=== PATIENT | male | born 1950 | race Caucasian/White ===

== ENCOUNTER 2021-07-02 16:58 | Inpatient (IN) | payer MEDICARE ==
[~2021-07-02] VITALS: Ht 182.9 cm; Wt 93.1 kg
[~2021-07-02 16:58] MED LIST: ASPI81TA52 PO; PANT-47 PO
[2021-07-02 18:27] VITALS: BP 143/89
--- NOTE | 2021-07-02 18:31 | NUR ---
pt placed into bed 2011b. placed on bedside monitor. high flow canula was started by rt. report given to Koko
[2021-07-02 19:00] VITALS: BP 119/93
--- NOTE | 2021-07-02 19:13 | NUR ---
Report received. Pt in bed on HFNC 100% 80L, NRBM on top. Pt in Afib HR 130s Andrew made aware.
[2021-07-02] MEDS ORDERED: metoprolol tartrate 1mg/ml inj IV ONE (19:15)
[2021-07-02 19:30] LABS: ABG BASE EXCESS -4.6 mmol/L (-2.0-2.0); ABG HCO3 18.6 mmol/L (22.0-26.0); ABG OXYGEN SATURATION 90.8 % (94-97); ABG PCO2 (T) 30.1 mmHg (35.0-48.0); ABG PO2 (T) 58.3 mmHg (75.0-100.0); ALLEN'S TEST POSITIVE; FCOHb 0.3 % (0.0-3.9); FLOW 60 L/min; FMetHb 0.3 % (0.0-1.5); FO2Hb 90.3 % (94-97)
[2021-07-02 20:00] VITALS: BP 159/80
[2021-07-02] MEDS ORDERED: magnesium hydroxide 30ml (MOM) UD suspension PO PRN (20:15)
[2021-07-02] MEDS ORDERED: acetaminophen 325mg tablet PO PRN ×2 (20:15)
[2021-07-02] MEDS ORDERED: ondansetron/PF 4mg/2ml inj IV PRN (20:15)
[2021-07-02] MEDS ORDERED: ALBUTEROL INHALER 1 PUFF/90 MCG INHALER IH PRN (20:20)
[2021-07-02] MEDS ORDERED: enoxaparin 40mg/0.4ml syringe SUBCUT ONE (20:20)
[2021-07-02] MEDS: normal saline 1000ml 1,000 ML IV SCH (20:22)
--- NOTE | 2021-07-02 20:28 | NUR ---
Kelli [phone] updated.
[2021-07-02 21:00] VITALS: BP 151/92
[2021-07-02 21:03] LABS: D-DIMER 0.49 MG/L FEU (0-0.50)
[2021-07-02 21:36] LABS: C-REACTIVE PROTEIN 4.78 MG/DL (0.0-0.5)
[2021-07-02 22:00] VITALS: BP 122/78
[2021-07-02 23:00] VITALS: BP 146/83
[2021-07-02] MEDS: metoprolol tartrate 1mg/ml inj IV PRN (23:00)
[2021-07-03] VITALS (24 sets, daily range): BP systolic 107–161; BP diastolic 75–110
[2021-07-03] MEDS: dexmedetomidine/D5W 100mL 100 ML IV SCH ×5 (00:42→20:46)
[2021-07-03] MEDS: morphine 2 MG/ML inj. syringe IV PRN (02:29)
[2021-07-03 04:08] LABS: ABG BASE EXCESS -6.6 mmol/L (-2.0-2.0); ABG HCO3 17.1 mmol/L (22.0-26.0); ABG OXYGEN SATURATION 89.6 % (94-97); ABG PCO2 (T) 28.7 mmHg (35.0-48.0); ABG PO2 (T) 54.6 mmHg (75.0-100.0); ALLEN'S TEST POSITIVE; FCOHb 0.3 % (0.0-3.9); FLOW 60 L/min; FMetHb 0.3 % (0.0-1.5); FO2Hb 89.1 % (94-97); TOTAL HEMOGLOBIN 16.4 G/dl (14.0-18.0)
[2021-07-03] MEDS ORDERED: pantoprazole 40MG/NS 100ML BAG 100 ML IV SCH (05:10)
[2021-07-03] MEDS ORDERED: NORMAL SALINE IV ONE (05:15)
[2021-07-03] MEDS ORDERED: REMDESIVIR INJ 200 MG in normal saline 100ml IV soln 60 ML IV ONE (05:15)
[2021-07-03] MEDS ORDERED: TOCILIZUMAB IV ONE (05:15)
--- NOTE | 2021-07-03 05:58 | NUR ---
Notified Kelli about soft wrist restraints being used.
--- NOTE | 2021-07-03 06:18 | NUR ---
Report given to Jaqueline CHAIREZ.
[2021-07-03 06:24] LABS: BASOPHILS % (AUTO) 0.2 % (0-1); EOSINOPHILS % (AUTO) 0 % (0-6); HEMATOCRIT 45.4 % (42.0-52.0); HEMOGLOBIN 15.3 g/dl (14.0-17.9); LYMPHOCYTES # (AUTO) 0.5 X10'3 (1.1-4.8); LYMPHOCYTES % (AUTO) 4.1 % (21-51); MEAN CORPUSCULAR HEMOGLOBIN 31.1 PG (27.0-31.0); MEAN CORPUSCULAR HGB CONC 33.7 g/dL (33.0-36.5); MEAN CORPUSCULAR VOLUME 92.1 FL (78-98); MEAN PLATELET VOLUME 8.7 FL (7.4-10.4); MONOCYTES % (AUTO) 7.9 % (2-12); NEUTROPHILS # (AUTO) 10.6 X10'3 (1.8-7.7); NEUTROPHILS % (AUTO) 87.8 % (42-75); PLATELET COUNT 204 X10'3 (140-440); RED BLOOD COUNT 4.93 X10'6 (4.70-6.10); RED CELL DISTRIBUTION WIDTH 14.1 % (11.5-14.5); WHITE BLOOD COUNT 12.1 X10'3 (4.5-11.0)
--- NOTE | 2021-07-03 06:30 | NUR ---
Patient in room CICU 2010. I have received report from CONTRERAS Sutherland and had the opportunity to ask questions and assume patient care.
[2021-07-03 06:50] LABS: ALANINE AMINOTRANSFERASE 49 U/L (12-78); ALBUMIN 2.1 G/DL (3.4-5.0); ALBUMIN/GLOBULIN RATIO 0.5 (1.1-1.5); ALKALINE PHOSPHATASE 62 IU/L (46-116); ANION GAP 13 (8-16); ASPARTATE AMINO TRANSFERASE 68 U/L (10-37); BILIRUBIN,TOTAL 0.5 MG/DL (0.1-1.0); BLOOD UREA NITROGEN 40 MG/DL (7-18); CALCIUM 8.3 MG/DL (8.5-10.1); CHLORIDE 115 MMOL/L (99-107); CREATININE 1.08 MG/DL (0.60-1.10); GLUCOSE 150 MG/DL (70-104); MAGNESIUM 2.3 MG/DL (1.5-2.4); POTASSIUM 4.1 MMOL/L (3.5-5.1); SODIUM 147 MMOL/L (135-145); TOTAL CARBON DIOXIDE 19.1 MMOL/L (24-32); eGFR 67 ML/MIN
--- NOTE | 2021-07-03 07:30 | NUR ---
Patient woke up very agitated and disoriented. Patient was unable to answer any questions and was unable to be reoriented. RT, primary RN and MD bedside. Per MD, patient was given 1 mg of Versed and placed on cpap on 100% FiO2. Patient became a little more calm. RT to get an abg in x1-2 hours to see how patient is tolerating.
[2021-07-03] MEDS ORDERED: midazolam 1 mg/ML 2ml injection ONE ×2 (07:39→16:50)
[2021-07-03] MEDS: pantoprazole 40 MG vial IV SCH (07:54)
[2021-07-03] MEDS ORDERED: REMDESIVIR INJ 100 MG in normal saline 100ml IV soln 80 ML IV SCH (08:00)
[2021-07-03] MEDS ORDERED: DEXAMETHASONE 6 MG TABLET PO SCH (08:00)
[2021-07-03] MEDS ORDERED: pantoprazole 40 MG vial IV SCH (08:00)
[2021-07-03] MEDS: normal saline 1000ml 1,000 ML IV SCH ×2 (09:35→14:03)
[2021-07-03 09:52] LABS: ABG BASE EXCESS -5.5 mmol/L (-2.0-2.0); ABG HCO3 20.7 mmol/L (22.0-26.0); ABG OXYGEN SATURATION 98.4 % (94-97); ABG PCO2 (T) 41.2 mmHg (35.0-48.0); ABG PO2 (T) 134.2 mmHg (75.0-100.0); ALLEN'S TEST POSITIVE; FCOHb 0.3 % (0.0-3.9); FMetHb 0.5 % (0.0-1.5); FO2Hb 97.6 % (94-97); PATIENT TEMPERATURE 36.1; TIDAL VOLUME 531 mL; TOTAL HEMOGLOBIN 16.2 G/dl (14.0-18.0)
[2021-07-03] MEDS ORDERED: haloperidol lactate 5mg/ml inj IM ONE (10:45)
--- NOTE | 2021-07-03 10:57 | NUR ---
x2 RNs in to reposition the patient due to patient feet hanging off the bed. Patient became extremely agitated and was kicking his legs and flailing about. Patient finally calmed down and went back to sleep after a bit of time. Per Dr. Morales, we are to "mess" with patient as little as possible to allow for rest to see if the patient will be less confused.
[2021-07-03] MEDS: dexamethasone inj 6 MG in normal saline 50ml IV soln 50 ML IV SCH ×2 (11:21→19:21)
[2021-07-03] MEDS: hydrALAZINE 20mg/ml inj. IV PRN (16:37)
--- NOTE | 2021-07-03 18:21 | NUR ---
Problems reprioritized. Patient report given, questions answered & plan of care reviewed with CONTRERAS Sutherland.
[2021-07-03] MEDS ORDERED: haloperidol lactate 5mg/ml inj IM PRN (19:00)
[2021-07-03] MEDS: enoxaparin 40mg/0.4ml syringe SUBCUT SCH (19:21)
--- NOTE | 2021-07-03 23:13 | NUR ---
Dr Velasco notified regarding pt change in mental status and minimally different pupils (R eye 3, L eye 2) and sluggish. Pt incomprehensible. CT head w/o contrast ordered. Unable to perform CT due to pt being unable to follow commands. Dr Velasco notified and left a voicemail.
[2021-07-04] VITALS (23 sets, daily range): BP systolic 102–174; BP diastolic 62–110
[2021-07-04] MEDS: normal saline 1000ml 1,000 ML IV SCH ×3 (00:03→19:16)
[2021-07-04] MEDS: hydrALAZINE 20mg/ml inj. IV PRN (02:18)
[2021-07-04] MEDS ORDERED: MESSAGE TO PHARMACY PO ONE (02:40)
[2021-07-04] MEDS ORDERED: glucagon, human recombinant 1mg kit SUBCUT PRN (02:40)
[2021-07-04] MEDS ORDERED: dextrose 50%-water 50ml dispensing syringe IV PRN ×2 (02:40)
[2021-07-04] MEDS ORDERED: dextrose ORAL solution 15 GM/59 ML bottle PO PRN ×2 (02:40)
[2021-07-04] MEDS ORDERED: insulin Lispro (HumaLOG) vial - multi-dose SQ SCH (02:40)
[2021-07-04] MEDS: dexamethasone inj 6 MG in normal saline 50ml IV soln 50 ML IV SCH ×3 (07:52→23:48)
[2021-07-04] MEDS: pantoprazole 40 MG vial IV SCH (08:00)
[2021-07-04 12:43] LABS: ABG BASE EXCESS -9.1 mmol/L (-2.0-2.0); ABG OXYGEN SATURATION 94.5 % (94-97); ABG PCO2 (T) 21.2 mmHg (35.0-48.0); ABG PO2 (T) 68.2 mmHg (75.0-100.0); ALLEN'S TEST POSITIVE; FCOHb 0.3 % (0.0-3.9); FMetHb 0.3 % (0.0-1.5); FO2Hb 93.9 % (94-97); TOTAL HEMOGLOBIN 17.9 G/dl (14.0-18.0)
[2021-07-04] MEDS: DEXMEDETOMIDINE 400MCG in NORMAL SALINE 100ml IV SCH ×2 (13:58→19:22)
[2021-07-04] MEDS: enoxaparin 40mg/0.4ml syringe SUBCUT SCH (19:18)
[2021-07-05] VITALS (24 sets, daily range): BP systolic 113–193; BP diastolic 68–126
[2021-07-05] MEDS: morphine 2 MG/ML inj. syringe IV PRN ×2 (00:34→13:34)
[2021-07-05] MEDS: hydrALAZINE 20mg/ml inj. IV PRN (03:12)
[2021-07-05] MEDS: DEXMEDETOMIDINE 400MCG in NORMAL SALINE 100ml IV SCH ×6 (03:25→22:25)
[2021-07-05] MEDS: normal saline 1000ml 1,000 ML IV SCH (06:02)
[2021-07-05 06:31] LABS: BASOPHILS % (AUTO) 0.1 % (0-1); EOSINOPHILS % (AUTO) 0 % (0-6); HEMATOCRIT 45.3 % (42.0-52.0); HEMOGLOBIN 15.5 g/dl (14.0-17.9); LYMPHOCYTES # (AUTO) 0.3 X10'3 (1.1-4.8); LYMPHOCYTES % (AUTO) 1.9 % (21-51); MEAN CORPUSCULAR HEMOGLOBIN 31.1 PG (27.0-31.0); MEAN CORPUSCULAR HGB CONC 34.1 g/dL (33.0-36.5); MEAN CORPUSCULAR VOLUME 91.2 FL (78-98); MEAN PLATELET VOLUME 8.3 FL (7.4-10.4); MONOCYTES # (AUTO) 0.9 X10'3 (0-0.9); MONOCYTES % (AUTO) 5.4 % (2-12); NEUTROPHILS # (AUTO) 14.8 X10'3 (1.8-7.7); NEUTROPHILS % (AUTO) 92.6 % (42-75); PLATELET COUNT 99 X10'3 (140-440); RED BLOOD COUNT 4.97 X10'6 (4.70-6.10); RED CELL DISTRIBUTION WIDTH 14.2 % (11.5-14.5)
[2021-07-05 06:50] LABS: D-DIMER > 35.20 MG/L FEU (0-0.50)
[2021-07-05 06:58] LABS: ALANINE AMINOTRANSFERASE 60 U/L (12-78); ALBUMIN/GLOBULIN RATIO 0.6 (1.1-1.5); ALKALINE PHOSPHATASE 120 IU/L (46-116); ANION GAP 12 (8-16); ASPARTATE AMINO TRANSFERASE 97 U/L (10-37); BILIRUBIN,TOTAL 1.2 MG/DL (0.1-1.0); BLOOD UREA NITROGEN 45 MG/DL (7-18); BUN/CREATININE RATIO 39.1 (5.4-32.0); C-REACTIVE PROTEIN 2.13 MG/DL (0.0-0.5); CHLORIDE 124 MMOL/L (99-107); CREATININE 1.15 MG/DL (0.60-1.10); GLUCOSE 145 MG/DL (70-104); MAGNESIUM 2.5 MG/DL (1.5-2.4); PHOSPHORUS 4.1 MG/DL (2.3-4.5); POTASSIUM 3.9 MMOL/L (3.5-5.1); SODIUM 154 MMOL/L (135-145); TOTAL CARBON DIOXIDE 17.7 MMOL/L (24-32); TOTAL PROTEIN 5.2 G/DL (6.4-8.2); eGFR 63 ML/MIN
[2021-07-05 08:44] LABS: HEMOGLOBIN A1C 6.5 % (4.5-6.2)
[2021-07-05] MEDS: pantoprazole 40 MG vial IV SCH (10:11)
[2021-07-05] MEDS: sodium chloride 0.45% 1,000 ML IV SCH ×2 (11:10→21:10)
--- NOTE | 2021-07-05 11:58 | NUR ---
Initial: Pt admit DX COVID-19, acute respiratory failure, delirium/encephalopathy, and afib per EMR. Pt NPO day 3 remains ALOC in restraints on bipap per EMR. KAELYN d/w MD regarding EN but concerns for pt aspiration w/ ALOC possibly to require PN per MD. TPN recs below. Noted pt A1C 6.5 on dexamethasone though no prior hx DM NEGATIVE CHECKER in EMR; possibly new this admit. IF new DM this admit would benefit from MD DX prior to education materials provided once more appropriate. No BM yet this admit 4 days unable to take PO. Will continue to monitor. Rec: 1. IF to remain NPO; consider EN to optimize nutrition status. IF continuous TF; Vital AF at 85ml/hr goal. 2. IF TF additional water flush 200ml Q4H 3. IF unsafe for EN per MD; consider TPN to meet needs. IF TPN recommend continuous TPN using 2:1 Clinimix E 5/20 at 105ml/hr goal w/ 100ml 20% intralipids to run at 8.33ml/hr for 12 hours each day. In total; would provide 2520ml volume/day, 126g AA, 504g DEX (3.78mg/kg/min), and 2418 kcals. 4. IF EN; PALB Q /Th; daily wts. IF PN; TG also Q / 5. routine bowel care; 4 days constipation 6. weekly wts 7. DM DX per MD discretion; unable to provide education materials until pt notified by MD and more appropriate this admit Addendum: 07/05/21 at [address] Amended: Links added.
[2021-07-05] MEDS: metoprolol tartrate 1mg/ml inj IV PRN (13:43)
[2021-07-05] MEDS ORDERED: amiodarone 150mg/dext, iso-os 100 ML IV ONE (14:40)
[2021-07-05] MEDS: amiodarone/D5 360MG/200ML BAG 200 ML IV SCH ×2 (15:20→20:44)
[2021-07-05] MEDS: dextrose 5%-water 1,000 ML IV SCH (15:28)
--- NOTE | 2021-07-05 15:45 | NUR ---
Per Dr Castano, change pt from CPAP to BiPAP. Pt changed to BiPAP 10/5 75%
[2021-07-05] MEDS: piperacillin/tazo 3.375gm/50ml 50 ML IV SCH (16:00)
[2021-07-05] MEDS ORDERED: midazolam 1 mg/ML 2ml injection ONE (16:35)
[2021-07-05] MEDS ORDERED: vancomycin/NS 1 GM ADD-VANTAGE 250 ML IV SCH (17:00)
--- NOTE | 2021-07-05 18:45 | NUR ---
Patient in room CICU 2010. I have received report from Jaci CHAIREZ and had the opportunity to ask questions and assume patient care. patient's at bedside.
[2021-07-05] MEDS: morphine 4 MG/ML inj SYRINge IV PRN ×2 (18:51→22:25)
--- NOTE | 2021-07-05 19:06 | NUR ---
Shift note [id number]- Patient on precedex respiratory rate in 32-41 breaths per minute heart rate in the high 80's to mid 90's in afib with periods of increased agitation and heart rate between 130 to 160 sustained, one dose of 5mg metoprolol given heart rate retuned to the 80-90's. 1600 patient went into a rapid afib sustaining a heart rate above 150. Dr. Castano bedside ordered a amio bolus with a follow up of a maintenance dose. Also ordered a bicarb gtt 1630 Dr. Castano placed a R sublavian central line, obtained consent from patients and discussed patients code status, she stated that she wanted to see him before she made a decision 174 bedside asking to speak to Dr. Castano, able to reach Omaira via phone as he was not on the hospital campus, discussed at length the patients poor prognosis, Patients agreed to make the patient comfort care and to not intubate him. Dr. Castano ordered comfort care with bipap over night
[2021-07-05] MEDS ORDERED: enoxaparin 60mg/0.6ml syringe SUBCUT SCH (20:00)
[2021-07-05] MEDS ORDERED: enoxaparin 30mg/0.3ml syringe SUBCUT SCH (20:00)
[2021-07-05] MEDS ORDERED: dexamethasone inj 4 MG in normal saline 50ml IV soln 50 ML IV SCH (20:00)
[2021-07-05] MEDS: LORazepam 2 mg/ml vial IV PRN (21:11)
[2021-07-05] MEDS: sodium bicarbonate (8.4%) inj. 100 MEQ in dextrose 5%-water 1,000 ML IV SCH (22:26)
[2021-07-06] VITALS (10 sets, daily range): BP systolic 65–139; BP diastolic 26–95
[2021-07-06] MEDS: piperacillin/tazo 3.375gm/50ml 50 ML IV SCH
[2021-07-06] MEDS: dextrose 5%-water 1,000 ML IV SCH (00:40)
[2021-07-06] MEDS: morphine 4 MG/ML inj SYRINge IV PRN ×2 (01:56→06:58)
[2021-07-06] MEDS: amiodarone/D5 360MG/200ML BAG 200 ML IV SCH ×2 (02:48→05:17)
[2021-07-06] MEDS: LORazepam 2 mg/ml vial IV PRN (03:16)
[2021-07-06] MEDS: sodium bicarbonate (8.4%) inj. 100 MEQ in dextrose 5%-water 1,000 ML IV SCH (03:45)
[2021-07-06] MEDS: DEXMEDETOMIDINE 400MCG in NORMAL SALINE 100ml IV SCH ×2 (05:18→08:21)
--- NOTE | 2021-07-06 06:30 | NUR ---
Patient in room CICU 2010. I have received report from Katiuska CHAIREZ and had the opportunity to ask questions and assume patient care.
--- NOTE | 2021-07-06 06:30 | NUR ---
Problems reprioritized. Patient report given, questions answered & plan of care reviewed with Jaci CHAIREZ.
--- NOTE | 2021-07-06 07:45 | NUR ---
Dr Castano by to round on patient updated him on patients status through the night and his current status. Explained to him that his heart rate was between 130-170bpm at shift change and that his blood pressure was decreasing and that he has agonal respirations with o2 saturation between 82-87%. Patients code status at present time is DNR with comfort care measures, he changed his code status to Do no intubate and ordered a stat chest xray and ABG. Patient continued to deteriorate, asked DR. Castano if we should start coding him, he stated no that the family is aware of his condition and that he will not survive and to let him pass. [address] Castano they are aware that he is actively passing and do not want him intubated. Patient passed at 0931, pronounced by myself Jaci Castano present during patients passing.
--- NOTE | 2021-07-06 09:35 | NUR ---
RN IS TO DOCUMENT YES TO ALL APPLICABLE AREAS Pronouncement of : 1. Time Physician Notified: 931 2. Date of :07/06/21 3. Time of : 930 4. DNR/Withdraw life support documented: yes 5. Monitor strip has been placed on chart: yes 6. Assessment process is of one-minute duration and includes following criteria: a) Patient is unresponsive to all stimuli: yes b) Pupils fixed and non-reactive:yes c) Auscultation of precordium reveals absence of heart tones:yes d) Auscultation of lungs reveals absence of breath sounds: yes e) Absence of blood pressure / all vital signs: yes f) QRS complexes are not present on monitor / EKG strip: yes g) Pacer spikes without capture:yes 4. Comments: Patient pronounced by Jaci Haile RN 07/06/21 @ 0946
--- NOTE | 2021-07-06 09:40 | NUR ---
Donor network called reference # [id number] lithography contact worker Linda, patient is not eligible for organ or tissue donation. Case was closed
--- NOTE | 2021-07-06 16:11 | NUR ---
Patient picked up by Bharathi, personal affects sent home with
[2021-07-06] MEDS ORDERED: VANCOMYCIN LEVEL IV ONE (16:30)
[2021-07-07] MEDS ORDERED: VANCOMYCIN LEVEL IV ONE (04:30)
== END 2021-07-06 09:30 | DRG 177 ==
LOC: UNDOADMIN 18:06 → CICU 2S 18:06
PROVIDERS: ADMIT Surgery; ATTEND Surgery
PROC: 5A0935A Assistance with Respiratory Ventilation, Less than 24 Consecutive Hours, High Flow/Velocity Cannula (ICD-10-PCS; principal; 2021-07-02)
PROC: 5A09457 Assistance with Respiratory Ventilation, 24-96 Consecutive Hours, Continuous Positive Airway Pressure (ICD-10-PCS; 2021-07-03)
DX: U07.1 COVID-19 (principal); J12.82 Pneumonia due to coronavirus disease 2019; J96.01 Acute respiratory failure with hypoxia; E87.2 Acidosis; G93.40 Encephalopathy, unspecified; E87.0 Hyperosmolality and hypernatremia; I48.0 Paroxysmal atrial fibrillation; Z66 Do not resuscitate; I46.9 Cardiac arrest, cause unspecified; Z78.1 Physical restraint status; Z86.73 Personal history of transient ischemic attack (TIA), and cerebral infarction without residual deficits; Z51.5 Encounter for palliative care
CPT/HCPCS: 36415; 36600; 71045; 80053; 82728; 82803; 82948; 83036; 83615; 83735; 84100; 84145; 85018; 85025; 85379; 85384; 85610; 86140; 87040; 93970; 94660; 94760; C9113; G0378; J0360; J1100; J1630; J1650; J1815; J2060; J2250; J2270; J3490; J7030; J7070